=== PATIENT | female | born 1990 | race African-American/Black ===

== ENCOUNTER 2022-09-24 09:00 | Emergency (ER) | payer OTHER ==
[2022-09-24 10:37] LABS: Bilirubin Neg (Negative); Blood, Urine Negative (Negative); Clarity Clear (Clear); Glucose, Urine (Dipstick) Normal (Negative); Ketone, Urine Negative (Negative); Leukocyte Negative (Negative); Nitrite Negative (Negative); Protein, Urine (Dipstick) Negative (Neg-Trace); Specific Gravity, Urine 1.005 (1.005-1.030); Urobilinogen Normal mg/dL (Less than 2)
[2022-09-24 10:41] LABS: Pregnancy Test - Urine (BHCG) POSITIVE (Negative); Pregu Control Background? CLEAR/WHITE (CLR/WHITE); Pregu Control Bar Appear? YES (CONTROL BAR); Specific Gravity 1.005 (1.002-1.036)
[2022-09-24] MEDS ORDERED: Acetaminophen 500 MG TAB ONE (11:53)
[2022-09-24] MEDS ORDERED: Cyclobenzaprine 10 MG TAB ONE (11:54)
[2022-09-24 12:12] LABS: #Basophils 0.1 10x3/uL (0.0-0.2); #Eosinphils 0.3 10x3/uL (0.0-0.5); #Monocytes 0.9 10x3/uL (0.0-1.1); #Neutrophils 7.1 10x3/uL (1.5-8.4); %Basophils 0.6 % (0.0-2.0); %Lymphocytes 21.7 % (18.0-47.0); %Monocytes 8.2 % (0.0-10.0); %Neutrophils 65.9 % (40.0-75.0); Hemoglobin 13.8 g/dL (12.0-15.5); Mean Corpuscular HGB CONC 33.3 g/dL (32.0-36.0); Mean Corpuscular Hemoglobin 30.3 pg (27.0-33.0); Mean Platelet Volume 9.5 fl (7.4-10.4); Platelet Count 348 10x3/uL (150-450); RBC Distribution Width 12.7 % (11.5-14.5); Red Blood Cell (RBC) Count 4.55 10x6/uL (3.90-5.03); White Blood Cell (WBC) Count 10.8 10x3/uL (3.5-10.5)
[2022-09-24 12:17] LABS: ALT (SGPT) 20 U/L (8-55); AST (SGOT) 17 U/L (5-34); Albumin 3.7 g/dL (3.5-5.0); Alkaline Phosphatase 46 U/L (40-110); Anion Gap 11 mmol/L (10-20); BUN (Urea Nitrogen) 6 mg/dL (7.0-18.7); Bilirubin, Total 0.4 mg/dL (0.2-1.2); CRP (Inflammatory) Less than 0.50 mg/dL (= or < 0.5); Calc. Creatinine Clearance 0 mL/min (70-130); Calcium 8.9 mg/dL (7.8-10.44); Carbon Dioxide 22 mmol/L (22-29); Chloride 107 mmol/L (98-107); Estimated GFR 108; Globulin 2.5 g/dL (2.4-3.5); Glucose 94 mg/dL (70-105); Potassium 3.7 mmol/L (3.5-5.1); Protein, Total 6.2 g/dL (6.0-8.3); Sodium 136 mmol/L (136-145)
[2022-09-24] MEDS ORDERED: Iopamidol 370 76% 100 ML VIAL ONE (13:48)
== END 2022-09-24 13:40 | disposition home or self-care (01) ==
LOC: CSHERS 09:00
DX: O9A.211 Injury, poisoning and certain other consequences of external causes complicating pregnancy, first trimester (principal); S29.012A Strain of muscle and tendon of back wall of thorax, initial encounter; O99.331 Smoking (tobacco) complicating pregnancy, first trimester; F17.200 Nicotine dependence, unspecified, uncomplicated; Z3A.01 Less than 8 weeks gestation of pregnancy; X58.XXXA Exposure to other specified factors, initial encounter
CPT/HCPCS: 71275; 80053; 81003; 81025; 84702; 85025; 85379; 86140; 93005; Q9967

== ENCOUNTER 2023-03-17 18:47 | Inpatient (IN) | payer BC, OTHER ==
[2023-03-17] MEDS ORDERED: Magnesium Sulfate 20 gm/500 ml 20 GM/500 ML BAG ONE (19:38)
[2023-03-17] MEDS ORDERED: hydrALAZINE 20 MG/ML VIAL SLOW IVP PRN ×2 (19:38)
[2023-03-17] MEDS ORDERED: Betamet Acet/Betamet Na Ph 30 MG/5 ML VIAL ONE (19:38)
[2023-03-17] MEDS ORDERED: Calcium Gluc 4.6 MEQ/10 ML (100 MG/ML) SLOW IVP PRN (19:38)
[2023-03-17] MEDS ORDERED: Zolpidem Tartrate 5 MG TAB PO PRN (19:38)
[2023-03-17] MEDS ORDERED: Ondansetron PF 4 MG/2 ML Vial IVP PRN (19:38)
[2023-03-17] MEDS ORDERED: Labetalol HCl 100 MG/20 ML VIAL SLOW IVP PRN (19:38)
[2023-03-17] MEDS ORDERED: Acetaminophen 500 MG TAB PO PRN (19:38)
[2023-03-17] MEDS ORDERED: Promethazine HCl 25 MG/ML VIAL IM PRN (19:38)
[2023-03-17] MEDS ORDERED: Lorazepam 2 MG/ML VIAL SLOW IVP PRN (19:38)
[2023-03-17] MEDS ORDERED: hydrALAZINE 20 MG/ML VIAL ONE (19:38)
[2023-03-17] MEDS ORDERED: Docusate 100 MG CAP PO PRN (19:38)
[2023-03-17] MEDS: Lactated Ringer's 1,000 ML IV SCH (19:40)
[2023-03-17] MEDS: Betamet Acet/Betamet Na Ph 30 MG/5 ML VIAL IM SCH (19:55)
[2023-03-17 20:00] VITALS: BMI 46.5
[2023-03-17] MEDS: hydrALAZINE 20 MG/ML VIAL SLOW IVP PRN (20:05)
[2023-03-17] MEDS: Labetalol HCl 100 MG/20 ML VIAL SLOW IVP PRN (20:20)
[2023-03-17 20:59] LABS: Mean Corpuscular HGB CONC 33.4 g/dL (32.0-36.0); Mean Corpuscular Hemoglobin 29.9 pg (27.0-33.0); Mean Corpuscular Volume 89.3 fl (81.6-98.3); Mean Platelet Volume 11.1 fl (7.4-10.4); Platelet Count 357 10x3/uL (150-450); RBC Distribution Width 13.3 % (11.5-14.5); Red Blood Cell (RBC) Count 4.02 10x6/uL (3.90-5.03); White Blood Cell (WBC) Count 9.8 10x3/uL (3.5-10.5)
[2023-03-17 21:13] LABS: Creatinine, Urine 38.98 mg/dL (47-110); Protein, Urine Random Quant Less than 10 mg/dL (1-14)
[2023-03-17 21:15] LABS: ALT (SGPT) 22 U/L (8-55); AST (SGOT) 26 U/L (5-34); Alkaline Phosphatase 82 U/L (40-110); Anion Gap 14 mmol/L (10-20); BUN (Urea Nitrogen) 6 mg/dL (7.0-18.7); Bilirubin, Total 0.2 mg/dL (0.2-1.2); Calc. Creatinine Clearance 263 mL/min (70-130); Calcium 9.2 mg/dL (7.8-10.44); Carbon Dioxide 21 mmol/L (22-29); Chloride 107 mmol/L (98-107); Estimated GFR 119; Globulin 2.9 g/dL (2.4-3.5); Glucose 115 mg/dL (70-105); Potassium 2.7 mmol/L (3.5-5.1); Protein, Total 5.9 g/dL (6.0-8.3); Sodium 139 mmol/L (136-145)
[2023-03-17 21:33] LABS: HBSAg Index 0.11 S/CO (0-0.99); Hep B Surf Ag - L&D Non-Reactive S/CO (NonReactive)
[2023-03-17 21:34] LABS: Syphilis Antibody Nonreactive (Nonreactive); Syphilis Antibody Index 0.05 S/CO (<1.00 Non-Reactive)
[2023-03-17] MEDS: Labetalol HCl 100 MG TAB PO SCH (22:12)
[2023-03-17] MEDS ORDERED: Potassium Chloride 20 MEQ TAB PO SCH (22:15)
[2023-03-18] MEDS: hydrALAZINE 20 MG/ML VIAL SLOW IVP PRN (00:45)
[2023-03-18] MEDS: Acetaminophen 500 MG TAB PO PRN ×3 (01:32→19:04)
[2023-03-18] MEDS: Lactated Ringer's 1,000 ML IV SCH (01:33)
[2023-03-18] MEDS ORDERED: Labetalol HCl 100 MG/20 ML VIAL SLOW IVP SCH (01:45)
[2023-03-18] MEDS: Magnesium Sulfate 20 gm/500 ml 20 GM/500 ML BAG IVPB SCH ×2 (05:06→14:58)
[2023-03-18] MEDS: Labetalol HCl 100 MG TAB PO SCH ×2 (06:18→14:38)
[2023-03-18] MEDS: Potassium Chloride 20 MEQ TAB PO SCH ×2 (08:23→19:04)
[2023-03-18] MEDS: Betamet Acet/Betamet Na Ph 30 MG/5 ML VIAL IM SCH (19:43)
[2023-03-18] MEDS: Heparin 5,000 UNITS/ML VIAL SC SCH (20:56)
[2023-03-19] MEDS: Labetalol HCl 100 MG TAB PO SCH ×4 (01:07→21:50)
[2023-03-19] MEDS: Lactated Ringer's 1,000 ML IV SCH ×3 (08:59→23:20)
[2023-03-19] MEDS: Heparin 5,000 UNITS/ML VIAL SC SCH ×2 (09:37→21:50)
[2023-03-19] MEDS: Potassium Chloride 20 MEQ TAB PO SCH ×2 (09:37→17:26)
[2023-03-19] MEDS: Magnesium Sulfate 20 gm/500 ml 20 GM/500 ML BAG IVPB SCH (14:00)
[2023-03-19] MEDS: Acetaminophen 500 MG TAB PO PRN (17:26)
[2023-03-19] MEDS: Labetalol HCl 100 MG/20 ML VIAL SLOW IVP PRN (19:17)
[2023-03-19] MEDS ORDERED: Labetalol HCl 100 MG/20 ML VIAL SLOW IVP PRN ×2 (19:37→19:39)
[2023-03-20] MEDS: Lactated Ringer's 1,000 ML IV SCH (04:15)
[2023-03-20 04:39] LABS: Hemoglobin 10.8 g/dL (12.0-15.5); Mean Corpuscular HGB CONC 33.2 g/dL (32.0-36.0); Mean Corpuscular Hemoglobin 29.9 pg (27.0-33.0); Mean Platelet Volume 10.2 fl (7.4-10.4); Platelet Count 335 10x3/uL (150-450); RBC Distribution Width 13.5 % (11.5-14.5); Red Blood Cell (RBC) Count 3.61 10x6/uL (3.90-5.03); White Blood Cell (WBC) Count 9.6 10x3/uL (3.5-10.5)
[2023-03-20 04:55] LABS: AST (SGOT) 11 U/L (5-34); Albumin 2.7 g/dL (3.5-5.0); Anion Gap 16 mmol/L (10-20); Bilirubin, Total 0.2 mg/dL (0.2-1.2); Calc. Creatinine Clearance 252 mL/min (70-130); Calcium 7.5 mg/dL (7.8-10.44); Carbon Dioxide 21 mmol/L (22-29); Chloride 105 mmol/L (98-107); Estimated GFR 113; Globulin 2.5 g/dL (2.4-3.5); Glucose 111 mg/dL (70-105); Potassium 2.8 mmol/L (3.5-5.1); Protein, Total 5.2 g/dL (6.0-8.3); Sodium 139 mmol/L (136-145)
[2023-03-20 05:03] LABS: ALT (SGPT) 12 U/L (8-55); Alkaline Phosphatase 68 U/L (40-110); BUN (Urea Nitrogen) 7 mg/dL (7.0-18.7); Magnesium 4.7 mg/dL (1.6-2.6)
[2023-03-20] MEDS: Labetalol HCl 100 MG TAB PO SCH ×3 (06:08→22:07)
[2023-03-20] MEDS: Potassium Chloride 20 MEQ TAB PO SCH (10:15)
[2023-03-20] MEDS: Heparin 5,000 UNITS/ML VIAL SC SCH ×2 (10:16→22:06)
[2023-03-21] MEDS: Labetalol HCl 100 MG TAB PO SCH ×3 (06:04→22:03)
[2023-03-21] MEDS: Heparin 5,000 UNITS/ML VIAL SC SCH ×2 (09:28→21:58)
[2023-03-21] MEDS: Potassium Chloride 20 MEQ TAB PO SCH ×3 (09:32→17:04)
[2023-03-22 02:45] LABS: #Eosinphils 0.2 10x3/uL (0.0-0.5); #Monocytes 0.8 10x3/uL (0.0-1.1); #Neutrophils 6.4 10x3/uL (1.5-8.4); %Basophils 0.3 % (0.0-2.0); %Eosinophils 2.2 % (0.0-6.0); %Monocytes 9.2 % (0.0-10.0); %Neutrophils 69.9 % (40.0-75.0); Hemoglobin 10.3 g/dL (12.0-15.5); Mean Corpuscular Hemoglobin 29.8 pg (27.0-33.0); Mean Corpuscular Volume 90.2 fl (81.6-98.3); Mean Platelet Volume 10.6 fl (7.4-10.4); Platelet Count 282 10x3/uL (150-450); RBC Distribution Width 13.5 % (11.5-14.5); Red Blood Cell (RBC) Count 3.46 10x6/uL (3.90-5.03); White Blood Cell (WBC) Count 9.1 10x3/uL (3.5-10.5)
[2023-03-22 02:57] LABS: ALT (SGPT) 13 U/L (8-55); AST (SGOT) 24 U/L (5-34); Albumin 2.6 g/dL (3.5-5.0); Alkaline Phosphatase 69 U/L (40-110); Anion Gap 14 mmol/L (10-20); BUN (Urea Nitrogen) 9 mg/dL (7.0-18.7); Bilirubin, Total 0.2 mg/dL (0.2-1.2); Calc. Creatinine Clearance 270 mL/min (70-130); Calcium 8.3 mg/dL (7.8-10.44); Carbon Dioxide 21 mmol/L (22-29); Chloride 106 mmol/L (98-107); Estimated GFR 119; Globulin 2.5 g/dL (2.4-3.5); Glucose 96 mg/dL (70-105); Potassium 2.7 mmol/L (3.5-5.1); Protein, Total 5.1 g/dL (6.0-8.3); Sodium 138 mmol/L (136-145)
[2023-03-22] MEDS: Labetalol HCl 100 MG/20 ML VIAL SLOW IVP PRN ×2 (03:14→13:55)
[2023-03-22] MEDS ORDERED: Magnesium Sulfate 20 gm/500 ml 20 GM/500 ML BAG ONE ×2 (03:58→11:40)
[2023-03-22] MEDS: hydrALAZINE 20 MG/ML VIAL SLOW IVP PRN (04:05)
[2023-03-22] MEDS ORDERED: CEFAZOLIN 2 GM VIAL ONE (04:31)
[2023-03-22] MEDS: Lactated Ringer's 1,000 ML IV SCH ×3 (04:32→19:03)
[2023-03-22 05:16] LABS: INR-International Normal Ratio 0.9; PTT 25.1 sec (22.0-33.0); Prothrombin Time 9.3 sec (9.5-12.1)
[2023-03-22] MEDS ORDERED: Potassium Chloride 20 MEQ TAB PO SCH (06:45)
[2023-03-22 07:47] LABS: Magnesium 1.4 mg/dL (1.6-2.6); Phosphorus 3.8 mg/dL (2.3-4.7)
[2023-03-22] MEDS: Potassium Chloride 20 MEQ in Premix Bag 1 BAG IVPB SCH ×2 (08:06→17:51)
[2023-03-22] MEDS: Labetalol HCl 100 MG TAB PO SCH ×2 (08:16→21:23)
[2023-03-22] MEDS ORDERED: Fentanyl 100 MCG/2 ML VIAL SLOW IVP PRN ×2 (10:01→14:13)
[2023-03-22] MEDS ORDERED: diphenhydrAMINE 50 MG/ML VIAL IVP PRN (10:01)
[2023-03-22] MEDS ORDERED: L&D-Morphine 4 MG/ML VIAL SLOW IVP PRN ×2 (10:01→14:13)
[2023-03-22] MEDS ORDERED: Promethazine HCl 25 MG SUPP PR PRN (10:01)
[2023-03-22] MEDS ORDERED: Naloxone HCl 0.4 mg/ml Vial IVP PRN ×2 (10:01)
[2023-03-22] MEDS ORDERED: Ondansetron PF 4 MG/2 ML Vial IVP PRN ×2 (10:01→11:27)
[2023-03-22] MEDS ORDERED: Moisturizing Cream (Eucerin) 113 GM JAR TOP PRN (10:01)
[2023-03-22] MEDS ORDERED: Ondansetron HCl/PF 4 MG/2 ML Vial IVP PRN ×2 (10:01→14:13)
[2023-03-22] MEDS ORDERED: Naloxone HCl 0.4 mg/ml Vial IV PRN (10:01)
[2023-03-22] MEDS ORDERED: Promethazine HCl 25 MG/ML VIAL IM PRN (10:01)
[2023-03-22] MEDS ORDERED: Meperidine HCl/PF 25 MG/ML VIAL SLOW IVP PRN ×2 (10:01→14:12)
[2023-03-22] MEDS ORDERED: Morphine PF 10 MG/10 ML VIAL ONE (10:08)
[2023-03-22] MEDS ORDERED: Dexamethasone 4 mg/ml Vial ONE (10:08)
[2023-03-22] MEDS ORDERED: Ondansetron PF 4 MG/2 ML Vial ONE (10:08)
[2023-03-22] MEDS ORDERED: Oxytocin 10 UNITS/ML VIAL ONE (10:09)
[2023-03-22] MEDS ORDERED: PHENYLEPHRINE-NS 100 MCG/ML 10 ML SYRINGE ONE (10:09)
[2023-03-22] MEDS ORDERED: Communication Order-Pharmacy FS SCH (10:15)
[2023-03-22] MEDS ORDERED: Ketorolac Tromethamine 30 MG/ML VIAL IVP SCH ×2 (10:15→14:15)
[2023-03-22] MEDS ORDERED: Carboprost 250 MCG/ML AMP ONE ×2 (10:55→14:31)
[2023-03-22 11:20] LABS: RapidComm Collect By OR NRSE
[2023-03-22 11:21] LABS: RapidComm Collect By OR NURSE; pH (Cord, venous) 7.313 (7.250-7.350)
[2023-03-22] MEDS ORDERED: Acetaminophen 325 MG TAB PO PRN (11:27)
[2023-03-22] MEDS ORDERED: Misoprostol 200 MCG TAB PR PRN (11:27)
[2023-03-22] MEDS ORDERED: Boostrix 0.5 ML (Tdap) VIAL (>/=7 yrs of age) IM ONE (11:27)
[2023-03-22] MEDS ORDERED: Lanolin Ointment 7 GM TUBE TOP PRN (11:27)
[2023-03-22] MEDS ORDERED: Bisacodyl 10 MG SUPP PR PRN (11:27)
[2023-03-22] MEDS ORDERED: hydrALAZINE 20 MG/ML VIAL SLOW IVP PRN (11:27)
[2023-03-22] MEDS ORDERED: NS w/ Oxytocin 30 units 500 ML IV SCH (11:30)
[2023-03-22] MEDS ORDERED: Meperidine HCl/PF 25 MG/ML VIAL ONE (12:56)
[2023-03-22] MEDS: Ketorolac Tromethamine 30 MG/ML VIAL IVP PRN ×2 (13:03→21:23)
[2023-03-22] MEDS ORDERED: fentaNYL 50 mcg/mL 1 mL Vial ONE (14:09)
[2023-03-22] MEDS ORDERED: Misoprostol 200 MCG TAB ONE (14:17)
[2023-03-22] MEDS ORDERED: Diphenoxylate HCl/Atropine Tablet PO SCH (15:00)
[2023-03-22 15:14] LABS: #Eosinphils 0.1 10x3/uL (0.0-0.5); #Monocytes 0.6 10x3/uL (0.0-1.1); #Neutrophils 16.3 10x3/uL (1.5-8.4); %Basophils 0.2 % (0.0-2.0); %Eosinophils 0.3 % (0.0-6.0); %Lymphocytes 4.9 % (18.0-47.0); %Monocytes 3.5 % (0.0-10.0); %Neutrophils 90.1 % (40.0-75.0); Hemoglobin 11.6 g/dL (12.0-15.5); Mean Corpuscular HGB CONC 33.4 g/dL (32.0-36.0); Mean Corpuscular Hemoglobin 30.4 pg (27.0-33.0); Mean Corpuscular Volume 90.8 fl (81.6-98.3); Mean Platelet Volume 10.9 fl (7.4-10.4); Platelet Count 348 10x3/uL (150-450); RBC Distribution Width 13.4 % (11.5-14.5); Red Blood Cell (RBC) Count 3.82 10x6/uL (3.90-5.03); White Blood Cell (WBC) Count 18.1 10x3/uL (3.5-10.5)
[2023-03-22 15:33] LABS: ALT (SGPT) 15 U/L (8-55); AST (SGOT) 30 U/L (5-34); Albumin 2.9 g/dL (3.5-5.0); Alkaline Phosphatase 79 U/L (40-110); Anion Gap 16 mmol/L (10-20); BUN (Urea Nitrogen) 7 mg/dL (7.0-18.7); Bilirubin, Total 0.3 mg/dL (0.2-1.2); Calc. Creatinine Clearance 263 mL/min (70-130); Calcium 7.8 mg/dL (7.8-10.44); Carbon Dioxide 20 mmol/L (22-29); Chloride 104 mmol/L (98-107); Estimated GFR 119; Globulin 2.9 g/dL (2.4-3.5); Glucose 98 mg/dL (70-105); Potassium 3.6 mmol/L (3.5-5.1); Protein, Total 5.8 g/dL (6.0-8.3); Sodium 136 mmol/L (136-145)
[2023-03-22] MEDS: Heparin 5,000 UNITS/ML VIAL SC SCH (19:13)
[2023-03-22] MEDS ORDERED: Ibuprofen 600 MG TAB PO PRN (20:29)
[2023-03-22] MEDS ORDERED: HYDROcodone/Acetaminophen 5/325 mg Tablet PO PRN (20:30)
[2023-03-22] MEDS: Ferrous Sulfate 325 MG TAB PO SCH (21:14)
[2023-03-22] MEDS: Magnesium Sulfate 20 gm/500 ml 20 GM/500 ML BAG IVPB SCH (21:24)
[2023-03-22] MEDS ORDERED: Diphenoxylate HCl/Atropine Tablet PO PRN (22:15)
[2023-03-23] MEDS ORDERED: Ketorolac Tromethamine 30 MG/ML VIAL IVP PRN (00:58)
[2023-03-23] MEDS: Lactated Ringer's 1,000 ML IV SCH ×4 (03:12→15:26)
[2023-03-23 04:22] LABS: Hemoglobin 9.9 g/dL (12.0-15.5); Mean Corpuscular HGB CONC 32.7 g/dL (32.0-36.0); Mean Corpuscular Hemoglobin 29.8 pg (27.0-33.0); Mean Corpuscular Volume 91.3 fl (81.6-98.3); Mean Platelet Volume 10.7 fl (7.4-10.4); Platelet Count 297 10x3/uL (150-450); RBC Distribution Width 13.2 % (11.5-14.5); Red Blood Cell (RBC) Count 3.32 10x6/uL (3.90-5.03)
[2023-03-23] MEDS: hydrALAZINE 20 MG/ML VIAL SLOW IVP PRN (05:45)
[2023-03-23] MEDS ORDERED: Labetalol HCl 100 MG/20 ML VIAL ONE (06:11)
[2023-03-23] MEDS: Labetalol HCl 100 MG/20 ML VIAL SLOW IVP PRN (06:12)
[2023-03-23] MEDS ORDERED: Labetalol HCl 100 MG/20 ML VIAL SLOW IVP SCH (06:15)
[2023-03-23] MEDS ORDERED: Lorazepam 2 MG/ML VIAL SLOW IVP PRN (06:15)
[2023-03-23] MEDS ORDERED: Labetalol HCl 100 MG/20 ML VIAL SLOW IVP PRN ×2 (06:15)
[2023-03-23] MEDS ORDERED: Calcium Gluc 4.6 MEQ/10 ML (100 MG/ML) SLOW IVP PRN (06:15)
[2023-03-23] MEDS ORDERED: hydrALAZINE 20 MG/ML VIAL SLOW IVP PRN (06:15)
[2023-03-23] MEDS: Ferrous Sulfate 325 MG TAB PO SCH ×2 (08:05→21:27)
[2023-03-23] MEDS: Magnesium Sulfate 20 gm/500 ml 20 GM/500 ML BAG IVPB SCH ×2 (08:05→08:07)
[2023-03-23] MEDS: Labetalol HCl 100 MG TAB PO SCH (08:06)
[2023-03-23] MEDS ORDERED: NIFEdipine 10 MG CAP PO SCH (10:10)
[2023-03-23] MEDS ORDERED: NIFEdipine 10 MG CAP ONE (10:20)
[2023-03-23] MEDS ORDERED: NIFEdipine XL 30 MG TAB PO SCH (11:45)
[2023-03-23] MEDS: HYDROcodone/Acetaminophen 5/325 mg Tablet PO PRN ×2 (12:15→18:00)
[2023-03-23] MEDS: Prenatal Vitamin 1 TAB PO SCH (15:02)
[2023-03-23] MEDS ORDERED: Ibuprofen 800 MG TAB PO SCH (22:00)
[2023-03-24] MEDS ORDERED: NIFEdipine 10 MG CAP PO SCH (01:45)
[2023-03-24] MEDS: Lactated Ringer's 1,000 ML IV SCH ×3 (04:05→21:52)
[2023-03-24] MEDS: Ibuprofen 800 MG TAB PO SCH ×3 (05:09→20:37)
[2023-03-24] MEDS: HYDROcodone/Acetaminophen 5/325 mg Tablet PO PRN ×3 (05:10→20:35)
[2023-03-24] MEDS ORDERED: NIFEdipine XL 30 MG TAB PO SCH (09:00)
[2023-03-24] MEDS: Ferrous Sulfate 325 MG TAB PO SCH ×2 (09:08→20:35)
[2023-03-24] MEDS: Prenatal Vitamin 1 TAB PO SCH (09:08)
[2023-03-24] MEDS: Docusate 100 MG CAP PO SCH ×2 (09:08→20:34)
[2023-03-24] MEDS: NIFEdipine XL 30 MG TAB PO SCH (09:08)
[2023-03-25] MEDS: Ibuprofen 800 MG TAB PO SCH ×3 (05:16→21:11)
[2023-03-25] MEDS: Lactated Ringer's 1,000 ML IV SCH ×3 (05:30→23:12)
[2023-03-25] MEDS: Docusate 100 MG CAP PO SCH ×2 (08:27→21:11)
[2023-03-25] MEDS: Ferrous Sulfate 325 MG TAB PO SCH ×2 (08:27→21:18)
[2023-03-25] MEDS: Prenatal Vitamin 1 TAB PO SCH (08:27)
[2023-03-25] MEDS: NIFEdipine XL 30 MG TAB PO SCH (08:27)
[2023-03-25] MEDS ORDERED: hydrALAZINE 20 MG/ML VIAL SLOW IVP SCH (12:10)
[2023-03-25] MEDS ORDERED: hydrALAZINE 20 MG/ML VIAL ONE (12:18)
[2023-03-25] MEDS: Labetalol HCl 200 MG TAB PO SCH ×2 (14:20→21:11)
[2023-03-25] MEDS: HYDROcodone/Acetaminophen 5/325 mg Tablet PO PRN (15:04)
[2023-03-26] MEDS: Ibuprofen 800 MG TAB PO SCH ×2 (07:14→14:20)
[2023-03-26] MEDS: Labetalol HCl 200 MG TAB PO SCH ×2 (07:14→14:23)
[2023-03-26] MEDS: HYDROcodone/Acetaminophen 5/325 mg Tablet PO PRN ×2 (07:20→14:34)
[2023-03-26] MEDS: Lactated Ringer's 1,000 ML IV SCH ×2 (07:37→14:40)
[2023-03-26] MEDS: Prenatal Vitamin 1 TAB PO SCH (10:20)
[2023-03-26] MEDS: Ferrous Sulfate 325 MG TAB PO SCH (10:20)
[2023-03-26] MEDS: Docusate 100 MG CAP PO SCH (10:20)
[2023-03-26] MEDS: NIFEdipine XL 30 MG TAB PO SCH (10:20)
[2023-03-26 21:25] VITALS: BP 163/86; TEMP 98.5
[2023-03-28] MEDS ORDERED: Ibuprofen 800 MG TAB PO SCH (06:00)
== END 2023-03-26 20:41 | disposition home or self-care (01) | DRG 788 ==
LOC: CSHLD/OP 18:47 → CSHLD 19:43 → CSHPP 03-23 15:07
PROVIDERS: ADMIT Family Medicine; ATTEND Family Medicine
PROC: 10D00Z1 Extraction of Products of Conception, Low, Open Approach (ICD-10-PCS; principal; 2023-03-22)
DX: O34.211 Maternal care for low transverse scar from previous cesarean delivery (principal); O14.14 Severe pre-eclampsia complicating childbirth; Z3A.33 33 weeks gestation of pregnancy; Z37.0 Single live birth; O34.13 Maternal care for benign tumor of corpus uteri, third trimester; D25.1 Intramural leiomyoma of uterus
CPT/HCPCS: 36415; 51702; 76815; 76819; 80053; 82570; 82805; 83735; 84100; 84156; 85025; 85027; 85610; 85730; 86780; 86850; 86900; 86901; 87340; 99285; J0360; J0702; J1100; J1644; J1650; J1885; J2175; J2274; J2405; J2590; J3010; J3475; J3480; J3490; J7120

== ENCOUNTER 2024-05-19 09:55 | Day surgery (SDC) | payer OTHER ==
[2024-05-19 10:32] VITALS: BMI 48.6
[2024-05-19 11:31] LABS: #Basophils 0.03 10x3/uL (0.0-0.2); #Eosinphils 0.21 10x3/uL (0.0-0.5); #Monocytes 0.95 10x3/uL (0.0-1.1); #Neutrophils 8.63 10x3/uL (1.5-8.4); %Basophils 0.3 % (0.0-2.0); %Eosinophils 1.8 % (0.0-6.0); %Lymphocytes 12.9 % (18.0-47.0); %Monocytes 8.4 % (0.0-10.0); %Neutrophils 75.9 % (40.0-75.0); Hemoglobin 11.3 g/dL (12.0-15.5); Mean Corpuscular HGB CONC 34.2 g/dL (32.0-36.0); Mean Corpuscular Hemoglobin 31.2 pg (27.0-33.0); Mean Corpuscular Volume 91.2 fL (81.6-98.3); Platelet Count 303 10x3/uL (150-450); RBC Distribution Width 13.5 % (11.5-14.5); Red Blood Cell (RBC) Count 3.62 10x6/uL (3.90-5.03); White Blood Cell (WBC) Count 11.4 10x3/uL (3.5-10.5)
[2024-05-19 12:06] LABS: ALT (SGPT) 16 U/L (8-55); AST (SGOT) 21 U/L (5-34); Albumin 2.1 g/dL (3.5-5.0); Alkaline Phosphatase 90 U/L (40-110); Anion Gap 10 mmol/L (10-20); BUN (Urea Nitrogen) 7 mg/dL (7.0-18.7); Bilirubin, Total 0.2 mg/dL (0.2-1.2); Calc. Creatinine Clearance 220 mL/min (70-130); Calcium 8.7 mg/dL (7.8-10.44); Carbon Dioxide 22 mmol/L (22-29); Chloride 110 mmol/L (98-107); Estimated GFR 95; Globulin 3.2 g/dL (2.4-3.5); Glucose 99 mg/dL (70-105); Potassium 3.2 mmol/L (3.5-5.1); Protein, Total 5.3 g/dL (6.0-8.3); Sodium 139 mmol/L (136-145)
== END 2024-05-19 12:22 | disposition home or self-care (01) ==
LOC: CSHLD/OP 09:55
PROVIDERS: ATTEND Obstetrics & Gynecology
DX: O10.913 Unspecified pre-existing hypertension complicating pregnancy, third trimester (principal); O34.211 Maternal care for low transverse scar from previous cesarean delivery; O99.213 Obesity complicating pregnancy, third trimester; E66.01 Morbid (severe) obesity due to excess calories; O99.333 Smoking (tobacco) complicating pregnancy, third trimester; Z3A.31 31 weeks gestation of pregnancy; Z79.82 Long term (current) use of aspirin; Z79.899 Other long term (current) drug therapy
CPT/HCPCS: 76819; 80053; 82570; 84156; 85025; 99284

== ENCOUNTER 2024-05-27 17:57 | Day surgery (SDC) | payer MEDICAID ==
[2024-05-27 18:30] VITALS: BMI 52.1
[2024-05-27 19:38] LABS: #Basophils 0.05 10x3/uL (0.0-0.2); #Eosinphils 0.22 10x3/uL (0.0-0.5); #Monocytes 1.12 10x3/uL (0.0-1.1); #Neutrophils 7.71 10x3/uL (1.5-8.4); %Basophils 0.5 % (0.0-2.0); %Lymphocytes 16.9 % (18.0-47.0); %Monocytes 10.2 % (0.0-10.0); %Neutrophils 69.8 % (40.0-75.0); Hemoglobin 11.9 g/dL (12.0-15.5); Mean Corpuscular Hemoglobin 31.2 pg (27.0-33.0); Mean Corpuscular Volume 91.6 fL (81.6-98.3); Mean Platelet Volume 10.1 fL (7.4-10.4); Platelet Count 339 10x3/uL (150-450); Red Blood Cell (RBC) Count 3.82 10x6/uL (3.90-5.03)
[2024-05-27 19:43] LABS: ALT (SGPT) 22 U/L (8-55); AST (SGOT) 28 U/L (5-34); Albumin 2.4 g/dL (3.5-5.0); Alkaline Phosphatase 100 U/L (40-110); Anion Gap 8 mmol/L (10-20); BUN (Urea Nitrogen) 5 mg/dL (7.0-18.7); Bilirubin, Total 0.3 mg/dL (0.2-1.2); Calc. Creatinine Clearance 283 mL/min (70-130); Calcium 8.9 mg/dL (7.8-10.44); Carbon Dioxide 23 mmol/L (22-29); Chloride 109 mmol/L (98-107); Estimated GFR 118; Globulin 3.3 g/dL (2.4-3.5); Glucose 73 mg/dL (70-105); Potassium 3.3 mmol/L (3.5-5.1); Protein, Total 5.7 g/dL (6.0-8.3); Sodium 137 mmol/L (136-145)
[2024-05-27] MEDS: NIFEdipine 10 MG CAP ONE (19:59)
[2024-05-27] MEDS: Labetalol HCl 200 MG TAB PO SCH (20:17)
[2024-05-27 20:24] LABS: Creatinine, Urine 46.15 mg/dL (47-110); Protein, Urine Random Quant Less than 10 mg/dL (1-14)
[2024-05-27] MEDS: Labetalol HCl 100 MG TAB PO SCH (20:46)
[2024-05-27 20:47] VITALS: BP 173/84
[2024-05-27] MEDS: Acetaminophen 500 MG TAB PO SCH (20:50)
[2024-05-27] MEDS ORDERED: hydrALAZINE 20 MG/ML VIAL SLOW IVP PRN (20:52)
== END 2024-05-27 22:25 | disposition home or self-care (01) ==
LOC: CSHLD/OP 17:57
PROVIDERS: ATTEND Student in an Organized Health Care Education/Training Program
DX: O10.913 Unspecified pre-existing hypertension complicating pregnancy, third trimester (principal); O34.211 Maternal care for low transverse scar from previous cesarean delivery; Z3A.32 32 weeks gestation of pregnancy; Z79.82 Long term (current) use of aspirin; Z79.899 Other long term (current) drug therapy
CPT/HCPCS: 36415; 76819; 80053; 82570; 84156; 85025

== ENCOUNTER 2024-06-05 11:09 | Inpatient (IN) | payer OTHER ==
[2024-06-05] MEDS ORDERED: hydrALAZINE 20 MG/ML VIAL SLOW IVP PRN ×3 (12:05→20:25)
[2024-06-05] MEDS ORDERED: Tranexamic Acid 1,000 MG/10 ML VIAL IVP PRN (12:39)
[2024-06-05] MEDS ORDERED: Promethazine HCl 25 MG/ML VIAL IM PRN ×2 (12:39→18:29)
[2024-06-05] MEDS ORDERED: Lorazepam 2 MG/ML VIAL SLOW IVP PRN (12:39)
[2024-06-05] MEDS ORDERED: Labetalol HCl 100 MG/20 ML VIAL SLOW IVP PRN (12:39)
[2024-06-05] MEDS ORDERED: Acetaminophen 500 MG TAB PO PRN (12:39)
[2024-06-05] MEDS ORDERED: Docusate 100 MG CAP PO PRN (12:39)
[2024-06-05] MEDS ORDERED: Calcium Gluc 4.6 MEQ/10 ML (100 MG/ML) SLOW IVP PRN (12:39)
[2024-06-05] MEDS ORDERED: fentaNYL 50 mcg/mL 1 mL Vial SLOW IVP PRN ×2 (12:39→18:29)
[2024-06-05] MEDS ORDERED: Diphenoxylate HCl/Atropine Tablet PO PRN (12:39)
[2024-06-05] MEDS ORDERED: Misoprostol 200 MCG TAB PR PRN (12:39)
[2024-06-05] MEDS ORDERED: Ondansetron PF 4 MG/2 ML Vial IVP PRN ×4 (12:39→20:25)
[2024-06-05] MEDS ORDERED: Oxytocin 30 units/NS 500 ML 500 ML IV SCH ×2 (12:45→20:25)
[2024-06-05] MEDS ORDERED: Lactated Ringer's 1,000 ML IV SCH (12:45)
[2024-06-05] MEDS: hydrALAZINE 20 MG/ML VIAL SLOW IVP PRN (13:15)
[2024-06-05 14:14] LABS: Hematocrit 35.7 % (34.9-44.5); Hemoglobin 12.3 g/dL (12.0-15.5); Mean Corpuscular HGB CONC 34.5 g/dL (32.0-36.0); Mean Corpuscular Hemoglobin 31.5 pg (27.0-33.0); Mean Corpuscular Volume 91.3 fL (81.6-98.3); Mean Platelet Volume 10.7 fL (7.4-10.4); Platelet Count 335 10x3/uL (150-450); RBC Distribution Width 14.2 % (11.5-14.5); Red Blood Cell (RBC) Count 3.91 10x6/uL (3.90-5.03); White Blood Cell (WBC) Count 12.1 10x3/uL (3.5-10.5)
[2024-06-05] MEDS: Labetalol HCl 100 MG/20 ML VIAL SLOW IVP PRN (14:20)
[2024-06-05 14:56] LABS: ALT (SGPT) 29 U/L (8-55); AST (SGOT) 40 U/L (5-34); Albumin 2.3 g/dL (3.5-5.0); Alkaline Phosphatase 119 U/L (40-110); Anion Gap 13 mmol/L (10-20); BUN (Urea Nitrogen) 8 mg/dL (7.0-18.7); Bilirubin, Total 0.3 mg/dL (0.2-1.2); Calc. Creatinine Clearance 0 mL/min (70-130); Carbon Dioxide 21 mmol/L (22-29); Chloride 107 mmol/L (98-107); Estimated GFR 116; Globulin 3.1 g/dL (2.4-3.5); Glucose 67 mg/dL (70-105); Potassium 3.4 mmol/L (3.5-5.1); Protein, Total 5.4 g/dL (6.0-8.3); Sodium 138 mmol/L (136-145)
[2024-06-05 15:15] VITALS: BMI 57.4
[2024-06-05 15:43] LABS: Syphilis Antibody Nonreactive (Nonreactive); Syphilis Antibody Index 0.05 S/CO (<1.00 Non-Reactive)
[2024-06-05 15:51] LABS: HBsAg Index 0.18 S/CO (0-0.99); Hep B Surf Ag - L&D Non-Reactive S/CO (NonReactive)
[2024-06-05] MEDS ORDERED: Magnesium Sulfate 20 gm/500 ml 20 GM/500 ML BAG IVPB SCH (18:00)
[2024-06-05] MEDS ORDERED: Meperidine HCl/PF 25 MG (1 mL) VIAL SLOW IVP PRN (18:29)
[2024-06-05] MEDS ORDERED: Naloxone HCl 0.4 mg/ml Vial IVP PRN ×2 (18:29)
[2024-06-05] MEDS ORDERED: Naloxone HCl 0.4 mg/ml Vial IV PRN (18:29)
[2024-06-05] MEDS ORDERED: Morphine 4 MG/ML VIAL SLOW IVP PRN (18:29)
[2024-06-05] MEDS ORDERED: Ketorolac Tromethamine 30 MG (1 mL) VIAL IVP SCH (18:30)
[2024-06-05] MEDS ORDERED: Communication Order-Pharmacy FS SCH (18:30)
[2024-06-05 18:53] LABS: Bilirubin Neg (Negative); Blood, Urine 25 (Negative); Clarity Clear (Clear); Glucose, Urine (Dipstick) Normal (Negative); Ketone, Urine Negative (Negative); Leukocyte Negative (Negative); Nitrite Negative (Negative); Protein, Urine (Dipstick) 30 mg/dl (Neg-Trace); Urobilinogen Normal mg/dL (Less than 2)
[2024-06-05 19:10] LABS: CAUTI Indications for Culture Pregnancy; Creatinine, Urine 70.96 mg/dL (47-110); Squamous Epithelial 0-3 HPF (0-3); WBC/HPF 0-3 HPF (0-3)
[2024-06-05 19:11] LABS: Bacteria/HPF Rare-Few HPF (None Seen); Transitional Epithelial 0-3 HPF (None Seen)
[2024-06-05 19:14] LABS: Urine Culture Reflex Yes Yes
[2024-06-05] MEDS ORDERED: Simethicone Chewable 80 MG TAB PO PRN (20:25)
[2024-06-05] MEDS ORDERED: Bisacodyl 10 MG SUPP PR PRN (20:25)
[2024-06-05] MEDS ORDERED: diphenhydrAMINE 25 MG CAP PO PRN (20:25)
[2024-06-05] MEDS ORDERED: Zolpidem Tartrate 5 MG TAB PO PRN (21:00)
[2024-06-05] MEDS: Labetalol HCl 100 MG TAB PO SCH (21:03)
[2024-06-05] MEDS: diphenhydrAMINE 50 MG/ML VIAL IVP PRN (21:12)
[2024-06-06 03:48] LABS: Hematocrit 34.8 % (34.9-44.5); Hemoglobin 11.6 g/dL (12.0-15.5); Mean Corpuscular HGB CONC 33.3 g/dL (32.0-36.0); Mean Corpuscular Hemoglobin 30.8 pg (27.0-33.0); Mean Corpuscular Volume 92.3 fL (81.6-98.3); Mean Platelet Volume 9.7 fL (7.4-10.4); Platelet Count 282 10x3/uL (150-450); RBC Distribution Width 14.3 % (11.5-14.5); Red Blood Cell (RBC) Count 3.77 10x6/uL (3.90-5.03); White Blood Cell (WBC) Count 9.5 10x3/uL (3.5-10.5)
[2024-06-06] MEDS: NIFEdipine XL 30 MG ER.TAB PO SCH ×2 (05:54→18:14)
[2024-06-06] MEDS: Acetaminophen 325 MG TAB PO PRN (07:13)
[2024-06-06] MEDS ORDERED: NIFEdipine 10 MG CAP PO SCH (07:30)
[2024-06-06 07:34] LABS: ALT (SGPT) 22 U/L (8-55); AST (SGOT) 24 U/L (5-34); Alkaline Phosphatase 86 U/L (40-110); Anion Gap 11 mmol/L (10-20); BUN (Urea Nitrogen) 6 mg/dL (7.0-18.7); Bilirubin, Total 0.3 mg/dL (0.2-1.2); Calc. Creatinine Clearance 312 mL/min (70-130); Calcium 7.8 mg/dL (7.8-10.44); Carbon Dioxide 21 mmol/L (22-29); Chloride 105 mmol/L (98-107); Estimated GFR 119; Glucose 79 mg/dL (70-105); Potassium 3.1 mmol/L (3.5-5.1); Sodium 134 mmol/L (136-145)
[2024-06-06] MEDS: Magnesium Sulfate 20 gm/500 ml 20 GM/500 ML BAG ONE (07:34)
[2024-06-06] MEDS: Erythromycin Base 0.5% Oint 1 GM TUBE ONE ×2 (07:35→07:36)
[2024-06-06] MEDS: Phytonadione Neonatal 1 MG/0.5 ML AMP ONE ×2 (07:36→07:37)
[2024-06-06] MEDS: CEFAZOLIN 2 GM VIAL ONE (07:36)
[2024-06-06] MEDS: Oxytocin 10 UNITS/ML VIAL ONE (07:37)
[2024-06-06] MEDS: Ondansetron PF 4 MG/2 ML Vial ONE (07:37)
[2024-06-06] MEDS: fentaNYL 50 mcg/mL 1 mL Vial ONE (07:38)
[2024-06-06] MEDS: Morphine PF 10 MG/10 ML VIAL ONE (07:38)
[2024-06-06] MEDS: Phenylephrine 40 MG/NS 250 ML 250 ML ONE (07:38)
[2024-06-06] MEDS: NIFEdipine 10 MG CAP ONE (07:39)
[2024-06-06] MEDS: Labetalol HCl 100 MG TAB PO SCH ×3 (08:28→20:16)
[2024-06-06] MEDS: Prenatal Vitamin 1 TAB PO SCH (08:29)
[2024-06-06] MEDS: Docusate 100 MG CAP PO SCH (08:29)
[2024-06-06] MEDS: Enoxaparin 40 MG (0.4 mL) SYRINGE SC SCH (08:30)
[2024-06-06] MEDS: Moisturizing Cream (Eucerin) 113 GM JAR TOP PRN (08:32)
[2024-06-06] MEDS: Ferrous Sulfate 325 MG TAB PO SCH (09:49)
[2024-06-06] MEDS: Potassium Chloride 20 MEQ TAB PO SCH ×2 (09:52→19:29)
[2024-06-06] MEDS: Ketorolac Tromethamine 30 MG (1 mL) VIAL IVP PRN (11:55)
[2024-06-06] MEDS: NIFEdipine 10 MG CAP PO SCH (12:57)
[2024-06-06] MEDS: Loratadine 10 MG TAB PO SCH (13:12)
[2024-06-06] MEDS: Magnesium Sulfate 20 gm/500 ml 20 GM/500 ML BAG IVPB SCH (13:42)
[2024-06-06] MEDS: Boostrix 0.5 ML (Tdap) VIAL (>/=7 yrs of age) IM ONE (20:14)
[2024-06-06] MEDS: Ibuprofen 800 MG TAB PO SCH (20:58)
[2024-06-06 21:38] LABS: Magnesium 3.8 mg/dL (1.6-2.6)
[2024-06-07] MEDS: HYDROcodone/Acetaminophen 5/325 mg Tablet PO PRN ×2 (03:55→16:39)
[2024-06-07 04:19] LABS: ALT (SGPT) 18 U/L (8-55); AST (SGOT) 14 U/L (5-34); Alkaline Phosphatase 77 U/L (40-110); Anion Gap 14 mmol/L (10-20); BUN (Urea Nitrogen) 8 mg/dL (7.0-18.7); Bilirubin, Total 0.2 mg/dL (0.2-1.2); Calc. Creatinine Clearance 275 mL/min (70-130); Calcium 8.3 mg/dL (7.8-10.44); Carbon Dioxide 21 mmol/L (22-29); Chloride 108 mmol/L (98-107); Estimated GFR 108; Globulin 3.2 g/dL (2.4-3.5); Glucose 106 mg/dL (70-105); Potassium 3.2 mmol/L (3.5-5.1); Protein, Total 5.2 g/dL (6.0-8.3); Sodium 140 mmol/L (136-145)
[2024-06-07 05:44] LABS: #Basophils 0.03 10x3/uL (0.0-0.2); #Eosinphils 0.25 10x3/uL (0.0-0.5); #Monocytes 0.75 10x3/uL (0.0-1.1); #Neutrophils 5.75 10x3/uL (1.5-8.4); %Basophils 0.4 % (0.0-2.0); %Lymphocytes 17.7 % (18.0-47.0); %Monocytes 9.1 % (0.0-10.0); %Neutrophils 69.4 % (40.0-75.0); Hematocrit 32.6 % (34.9-44.5); Hemoglobin 10.9 g/dL (12.0-15.5); Mean Corpuscular HGB CONC 33.4 g/dL (32.0-36.0); Mean Corpuscular Hemoglobin 31.1 pg (27.0-33.0); Mean Corpuscular Volume 92.9 fL (81.6-98.3); Mean Platelet Volume 9.6 fL (7.4-10.4); Platelet Count 280 10x3/uL (150-450); RBC Distribution Width 14.6 % (11.5-14.5); Red Blood Cell (RBC) Count 3.51 10x6/uL (3.90-5.03); White Blood Cell (WBC) Count 8.3 10x3/uL (3.5-10.5)
[2024-06-07] MEDS: Potassium Chloride 20 MEQ in Premix 1 BAG IVPB SCH (06:02)
[2024-06-07] MEDS: Dextromethorphan Polistirex 60 MG/10 ML ER.12 HR UDCUP PO PRN (06:04)
[2024-06-07] MEDS: Potassium Chloride 20 MEQ TAB PO SCH (07:49)
[2024-06-07] MEDS: NIFEdipine XL 30 MG ER.TAB PO SCH ×2 (09:20→11:02)
[2024-06-07] MEDS: Enoxaparin 40 MG (0.4 mL) SYRINGE SC SCH (22:21)
[2024-06-08 04:25] LABS: Anion Gap 16 mmol/L (10-20); BUN (Urea Nitrogen) 9 mg/dL (7.0-18.7); Calc. Creatinine Clearance 278 mL/min (70-130); Calcium 8.7 mg/dL (7.8-10.44); Carbon Dioxide 22 mmol/L (22-29); Chloride 106 mmol/L (98-107); Estimated GFR 110; Glucose 86 mg/dL (70-105); Potassium 3.5 mmol/L (3.5-5.1); Sodium 140 mmol/L (136-145)
[2024-06-08] MEDS: NIFEdipine XL 30 MG ER.TAB PO SCH (07:45)
[2024-06-08 07:47] VITALS: BP 148/72
[2024-06-08 07:56] VITALS: TEMP 98.2
[2024-06-08] MEDS: Ferrous Sulfate 325 MG TAB PO SCH (09:38)
== END 2024-06-08 10:40 | disposition home or self-care (01) | DRG 785 ==
LOC: CSHLD/OP 11:09 → CSHLD 12:51 → CSHPP 06-07 09:00
PROVIDERS: ADMIT Student in an Organized Health Care Education/Training Program; ATTEND Student in an Organized Health Care Education/Training Program
PROC: 10D00Z1 Extraction of Products of Conception, Low, Open Approach (ICD-10-PCS; principal; 2024-06-05)
PROC: 0UB70ZZ Excision of Bilateral Fallopian Tubes, Open Approach (ICD-10-PCS; 2024-06-05)
DX: O11.4 Pre-existing hypertension with pre-eclampsia, complicating childbirth (principal); Z37.0 Single live birth; Z79.82 Long term (current) use of aspirin; Z79.899 Other long term (current) drug therapy; Z86.711 Personal history of pulmonary embolism; Z3A.33 33 weeks gestation of pregnancy; O87.0 Superficial thrombophlebitis in the puerperium; O99.214 Obesity complicating childbirth; O99.814 Abnormal glucose complicating childbirth; Z30.2 Encounter for sterilization; O34.212 Maternal care for vertical scar from previous cesarean delivery; O34.13 Maternal care for benign tumor of corpus uteri, third trimester; D25.9 Leiomyoma of uterus, unspecified; O99.284 Endocrine, nutritional and metabolic diseases complicating childbirth; E87.6 Hypokalemia; R05.9 Cough, unspecified
CPT/HCPCS: 36415; 51702; 71045; 80048; 80053; 81001; 82570; 83735; 84156; 85025; 85027; 86780; 86850; 86900; 86901; 87086; 87340; 88302; 99285; J0360; J1200; J1650; J1885; J2274; J2405; J2590; J3010; J3475; J3480